=== PATIENT | male | born 1970 | race Two or more races ===

== ENCOUNTER 2019-11-20 20:48 | Emergency (ER) | payer SELFPAY ==
[~2019-11-20] VITALS: Ht 167.6 cm; Wt 69.9 kg
[2019-11-20 21:00] VITALS: BP 120/70
--- NOTE | 2019-11-20 21:56 | Emergency Room Report ---
History of Present Illness General Chief Complaint: Alcohol Intoxication Source: EMS (Shaheen Lane MD) Present Illness HPI 49-year-old male presents for alcohol intoxication. Brought in by EMS from Street. Reported alcohol use. Found down. Patient unable to provide any additional history at this time. Unclear whether patient fell and injured himself. No nausea or vomiting. No signs of distress. No other aggravating relieving factors. Denies any other associated symptoms (Shaheen Lane MD) Allergies: Coded Allergies: No Known Allergies (Unverified , 11/20/19) COVID-19 Screening Contact w/high risk pt: No Recent Travel to affected area: No Experienced COVID-19 symptoms?: No COVID-19 Testing performed SECURITY PROGRAM MANAGER: No (Shaheen Lane MD) Patient History Past Medical History: none Past Surgical History: none Pertinent Family History: none Social History: Reports: alcohol use; Denies: smoking, drug use Last Menstrual Period: NA Now: No Immunizations: UTD Reviewed Nursing Documentation: PMH: Agreed; PSxH: Agreed (Shaheen Lane MD) Review of Systems All Other Systems: limited (Shaheen Lane MD) Physical Exam Vital Signs Date Time Temp Pulse Resp B/P (MAP) Pulse Ox O2 Delivery O2 Flow Rate FiO2 11/20/19 20:44 97.9 83 16 120/70 (87) 98 Room Air Sp02 EP Interpretation: reviewed, normal General Appearance: other - intoxicated Head: normocephalic Eyes: bilateral eye normal inspection, bilateral eye PERRL ENT: normal ENT inspection Neck: normal inspection Respiratory: chest non-tender, lungs clear, normal breath sounds, speaking full sentences Cardiovascular #1: regular rate, rhythm, no edema Gastrointestinal: normal inspection Rectal: deferred Genitourinary: no CVA tenderness Musculoskeletal: normal inspection Neurologic: other - intoxicated Psychiatric: other - intoxicated Skin: no rash Lymphatic: normal inspection (Shaheen Lane MD) Medical Decision Making Homeless Attestation I, The treating physician Dr. Tapia, have assessed and agree that patient is medically stable for discharge to an outpatient disposition. (Luis Tapia MD) Diagnostic Impression: Primary Impression: Acute alcoholic intoxication Qualified Codes: F10.920 - Alcohol use, unspecified with intoxication, uncomplicated ER Course Please see above note. Patient examined by me at 2315. Patient still sleeping soundly but airway is protected. Continued observation and repeat evaluation. More arousable. Still somnolent. 432 Alert. Ambulatory. c/o nausea. Given Zofran. Knows of AA. Does not have PMD. Referrals given. (Luis Tapia MD) Last Vital Signs Date Time Temp Pulse Resp B/P (MAP) Pulse Ox O2 Delivery O2 Flow Rate FiO2 11/20/19 20:44 97.9 83 16 120/70 (87) 98 Room Air (Shaheen Lane MD) Last Vital Signs Date Time Temp Pulse Resp B/P (MAP) Pulse Ox O2 Delivery O2 Flow Rate FiO2 11/21/19 05:25 97.9 16 120/70 98 Room Air 11/20/19 21:00 83 Status: improved (Luis Tapia MD) Disposition: HOME, SELF-CARE Condition: Improved Referrals: NOT CHOSEN IPA/,REFERRING (PCP) Shaheen Lane MD November 20, 2019 21:56 Luis Tapia MD November 20, 2019 23:27
--- NOTE | 2019-11-20 22:02 | Diagnostic Imaging Report ---
EXAM: CT Head Without Intravenous Contrast CLINICAL HISTORY: AMS TECHNIQUE: Axial computed tomography images of the head/brain without intravenous contrast. CTDI is 53.4 mGy and DLP is 975.1 mGy-cm. One or more of the following dose reduction techniques were used: automated exposure control, adjustment of the mA and/or kV according to patient size, use of iterative reconstruction technique. COMPARISON: No relevant prior studies available. FINDINGS: Small portions of the left occipital-parietal area are excluded from the [id number] Brain: No hemorrhage. No edema. Ventricles: No ventriculomegaly. Bones/joints: No acute fracture. Soft tissues: Unremarkable. Sinuses: No acute sinusitis. Mild sinus mucosal thickening. Mastoid air cells: Right mastoid opacification.. IMPRESSION: No acute intracranial process on study as presented.
[2019-11-21 05:25] VITALS: BP 120/70
== END 2019-11-21 05:25 | disposition home or self-care (01) ==
LOC: EDBD 20:48 → EDSEX 21:13 → EMR 21:13
DX: F10.920 Alcohol use, unspecified with intoxication, uncomplicated (principal)
CPT/HCPCS: 70450; 99284